=== PATIENT | female | born 1950 | race Caucasian/White ===

== ENCOUNTER 2022-03-30 09:26 | Emergency (ER) | payer MEDICARE, OTHER ==
[~2022-03-30] VITALS: Ht 162.6 cm; Wt 72.6 kg
[2022-03-30] MEDS ORDERED: MORPHINE SULFATE INJ 2 MG/ML DISP.SYRIN IM ONE (10:30)
[2022-03-30] MEDS ORDERED: predniSONE 50 MG TABLET PO ONE (10:30)
[2022-03-30] MEDS ORDERED: ONDANSETRON 4 MG TAB.RAPDIS PO ONE (10:30)
--- NOTE | 2022-03-30 11:00 | NUR ---
Back Pain started 2days ago taking meds (tylenol 3/motrin) NOT helping. AMBULATORY, AAOX4, PLACED ON BED, BREATHING EVEN AND UNLABORED SATURATING AT 97%, IN PAIN 10/10 PS.
[2022-03-30] MEDS ORDERED: predniSONE 20 MG TABLET ONE (11:17)
[2022-03-30] MEDS ORDERED: ONDANSETRON 4 MG TAB.RAPDIS ONE (11:18)
[2022-03-30] MEDS ORDERED: MORPHINE SULFATE INJ 4 MG/ML DISP.SYRIN ONE (11:18)
[2022-03-30] MEDS ORDERED: PRED20TA PO (12:16)
[2022-03-30] MEDS ORDERED: CYCL10TA9 PO (12:16)
--- NOTE | 2022-03-30 12:25 | NUR ---
Patient discharged to home in stable condition. Written and verbal after care instructions given. Patient verbalizes understanding of instruction.
[2022-03-30 12:27] VITALS: BP 120/70
== END 2022-03-30 12:25 | disposition home or self-care (01) ==
LOC: ER 09:35
DX: M54.42 Lumbago with sciatica, left side (principal); I10 Essential (primary) hypertension; Z88.0 Allergy status to penicillin
CPT/HCPCS: 99283; 96372; 72110; J2270; J7512; Q0162